=== PATIENT | female | born 1995 | race Caucasian/White ===

== ENCOUNTER 2018-10-09 01:33 | Emergency (ER) | payer OTHER ==
[2018-10-09] MEDS ORDERED: Morphine 10 MG/ML VIAL ONE (02:27)
[2018-10-09] MEDS ORDERED: Ketorolac Tromethamine 30 MG/ML VIAL ONE ×2 (02:27→03:00)
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
== END 2018-10-09 03:25 | disposition home or self-care (01) ==
LOC: ERS 01:33
DX: S13.4XXA Sprain of ligaments of cervical spine, initial encounter (principal); S30.0XXA Contusion of lower back and pelvis, initial encounter; V49.9XXA Car occupant (driver) (passenger) injured in unspecified traffic accident, initial encounter
CPT/HCPCS: 71045; 72040; 72070; 72100; 96372; 96374; J1885; J2270

== ENCOUNTER 2019-04-27 12:41 | Outpatient (CLI) | payer OTHER ==
--- NOTE | 2019-04-27 15:52 | MRI ---
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 FINDINGS: Multiplanar, multisequence MRI of the fingers was performed without intravenous contrast. BONES: No edema. No loss of normal T1 marrow signal. LIGAMENTS: Evaluation of the small ligamentous features of the hand is limited due to the large field of view an d scanner capabilities. The sagittal T1 is nondiagnostic. No definite evidence of a karel injury. TENDONS: No significant tenosynovitis. IMPRESSION: No evidence for osteomyelitis of the ring finger. Abscess evaluation is limited without intravenous contrast as well as scan limitations. POS: [facility]
== END 2019-04-27 12:42 | disposition home or self-care (01) ==
LOC: TBSIIMAG 12:41
PROVIDERS: ATTEND Orthopaedic Surgery Hand Surgery
DX: S61.305A Unspecified open wound of left ring finger with damage to nail, initial encounter (principal); M86.9 Osteomyelitis, unspecified; L60.8 Other nail disorders